=== PATIENT | female | born 1960 | race Caucasian/White ===

== ENCOUNTER 2016-08-31 05:10 | Day surgery (SDC) | payer BC ==
[~2016-08-31] VITALS: Ht 162.6 cm; Wt 70.0 kg
[~2016-08-31 05:10] MED LIST: AMLODIPINE BESYL5 MG PO; ATORVASTATIN CA80 MG PO; COLACE100 MG PO; HYDROCHLOROTHIA25 MG PO; OMEGA-31000 M1 PO; POTASSIUM CHLO10 ME4 PO; PREVACID15 MG PO; TRAMADOL HCL50 MG PO; VENLAFAXINE HC150 M1 PO; VENLAFAXINE HCL75 M3 PO; VITAMIN D32000 UNI1 PO; VITAMIN D5000 UNI1 PO
[2016-08-31 05:45] VITALS: BP 122/76
[2016-08-31 09:08] VITALS: BP 137/87
[2016-08-31 10:04] VITALS: BP 142/84
== END 2016-08-31 10:10 | disposition home or self-care (01) ==
LOC: SDC → 2SOUTH 09:16 → EDSTATUS 09:17 → SDC 09:18
PROC: 0UBMXZZ Excision of Vulva, External Approach (ICD-10-PCS; principal; 2016-08-31)
DX: D07.1 Carcinoma in situ of vulva (principal); K21.9 Gastro-esophageal reflux disease without esophagitis; E78.5 Hyperlipidemia, unspecified; I10 Essential (primary) hypertension; F17.210 Nicotine dependence, cigarettes, uncomplicated; R73.03 Prediabetes; Z82.5 Family history of asthma and other chronic lower respiratory diseases; Z82.49 Family history of ischemic heart disease and other diseases of the circulatory system
CPT/HCPCS: 88305; 88342 TC; J0690; J1100; J2250; J2270; J2405; J3010